=== PATIENT | male | born 1960 | race Caucasian/White ===

== ENCOUNTER → 2019-06-29 | Outpatient (CLI) | payer OTHER | LOC: M.MRI 12:44 | DX: M50.33 Other cervical disc degeneration, cervicothoracic region (principal); M50.23 Other cervical disc displacement, cervicothoracic region; M47.813 Spondylosis without myelopathy or radiculopathy, cervicothoracic region; M79.621 Pain in right upper arm; M79.622 Pain in left upper arm ==

== ENCOUNTER → 2019-10-11 | Outpatient (CLI) | payer OTHER ==
[2019-10-11 16:57] LABS: CREATININE 1.9 mg/dL (0.6-1.3)
== END ==
LOC: M.CT 16:27
PROVIDERS: Internal Medicine
DX: N28.1 Cyst of kidney, acquired (principal); J98.11 Atelectasis; J84.10 Pulmonary fibrosis, unspecified; K42.9 Umbilical hernia without obstruction or gangrene; K76.0 Fatty (change of) liver, not elsewhere classified; R19.7 Diarrhea, unspecified

== ENCOUNTER → 2020-12-08 | Outpatient (CLI) | payer OTHER | LOC: M.NUC 11-27 15:12 | PROVIDERS: ATTEND Internal Medicine | DX: E21.3 Hyperparathyroidism, unspecified (principal) ==

== ENCOUNTER → 2021-01-13 | Outpatient (CLI) | payer OTHER | LOC: M.ULTRA 01-01 16:55 | PROVIDERS: ATTEND Internal Medicine | DX: E21.3 Hyperparathyroidism, unspecified (principal); E06.9 Thyroiditis, unspecified ==

== ENCOUNTER → 2021-12-18 | Outpatient (CLI) | payer OTHER | LOC: M.ULTRA 09:00 | PROVIDERS: ATTEND Internal Medicine | DX: K76.0 Fatty (change of) liver, not elsewhere classified (principal); R10.9 Unspecified abdominal pain ==